=== PATIENT | male | born 1955 | race Caucasian/White ===

== ENCOUNTER 2018-11-26 13:12 | Observation (INO) | payer BC, MEDICARE ==
--- NOTE | 2018-11-26 14:01 | ED ---
HPI Cardiac - HPI Summary HPI Summary: This pt is a 62 y/o male presenting to [facility] referred by PCP for abnormal EKG. Pt reports he had a regular check up today for the first time after not seeing a PCP for 5 years. Former PCP was Dr. Gonzalez, current PCP is Dr. Fulton. Pt had an EKG done and was told it was abnormal with borderline ND. He states he has never had an EKG in the past. He was also told he had elevated blood pressure today. Denies chest pain, SOB, abd pain, nausea, dizziness. Pt was referred to the ED for further evaluation. PMHx: HTN. Pt is a current every day smoker. He has never had a stress test. FHx: mother with HTN. - History of Current Complaint Chief Complaint: EDGeneral Stated Complaint: LABS/DOCTOR SENT FOR EKG Time Seen by Provider: 11/26/18 13:50 Hx Obtained From: Patient Onset/Duration: Started Hours Ago Timing: Lasting Hours Current Severity: None Pain Intensity: 0 Pain Scale Used: 0-10 Numeric Aggravating Factor(s): Nothing Alleviating Factor(s): Nothing Associated Signs and Symptoms: Negative: Chest Pain, Dizziness, Shortness of Breath, Fever, Chills, Nausea, Abdominal Pain - Allergy/Home Medications Allergies/Adverse Reactions: Allergies Allergy/AdvReac Type Severity Reaction Status Date / Time No Known Allergies Allergy Verified 04/13/14 13:53 PMH/Surg Hx/FS Hx/Imm Hx Endocrine/Hematology History: Denies: Hx Anticoagulant Therapy, Hx Diabetes, Hx Thyroid Disease Cardiovascular History: Reports: Hx Hypertension Denies: Hx Pacemaker/ICD Respiratory History: Reports: Hx Chronic Obstructive Pulmonary Disease (COPD) Denies: Hx Asthma GI History: Reports: Hx Gastroesophageal Reflux Disease History: Denies: Hx Renal Disease Sensory History: Denies: Hx Hearing Aid Neurological History: Denies: Hx Dementia, Hx Seizures Psychiatric History: Denies: Hx Panic Disorder, Hx Substance Abuse - Surgical History Surgery Procedure, Year, and Place: Left pneumothorax, . L inguinal hernia repair,1966. R eye injury and surgery at 20mos of age Hx Anesthesia Reactions: No Infectious Disease History: No Infectious Disease History: Denies: Hx Hepatitis, Hx Human Immunodeficiency Virus (HIV), Traveled Outside the [place] in Last 30 Days - Family History Known Family History: Positive: Hypertension - mother - Social History Alcohol Use: Weekly Substance Use Type: Reports: None Smoking Status (MU): Heavy Every Day Tobacco Smoker Review of Systems Negative: Fever, Chills Negative: Chest Pain Negative: Shortness Of Breath Negative: Abdominal Pain, Nausea Neurological: Other - NEG: dizziness All Other Systems Reviewed And Are Negative: Yes Physical Exam - Summary Physical Exam Summary: Appearance: Well appearing, no pain distress Skin: warm, dry, reflects adequate perfusion Head/face: normal Eyes: EOMI, DEON ENT: normal Neck: supple, nontender Respiratory: CTA, breath sounds present Cardiovascular: RRR, pulses symmetrical Abdomen: nontender, soft Musculoskeletal: normal, strength/ROM intact Neuro: normal, sensory motor intact, A&Ox3 Triage Information Reviewed: Yes Vital Signs On Initial Exam: Initial Vitals Temp Pulse Resp BP Pulse Ox 98.3 F 97 22 192/118 95 11/26/18 13:16 11/26/18 13:16 11/26/18 13:16 11/26/18 13:16 11/26/18 13:16 Vital Signs Reviewed: Yes Diagnostics - Vital Signs Vital Signs Temp Pulse Resp BP Pulse Ox 11/26/18 13:16 98.3 F 97 22 192/118 95 - Laboratory Result Diagrams: 11/26/18 14:21 11/26/18 14:21 Lab Statement: Any lab studies that have been ordered have been reviewed, and results considered in the medical decision making process. - Radiology Chest XR Radiology Interpretation Completed By: Radiologist Summary of Radiographic Findings: IMPRESSION: No evidence for acute finding. Dr. Burden has reviewed this report. - EKG 13:31 Cardiac Rate: NL - at 86 bpm EKG Rhythm: Sinus Rhythm Summary of EKG Findings: RBBB. Disposition - Course Assessment/Plan: Pt is a 62 y/o male, with hx of HTN, who presents to the ED for abnormal EKG. Pt was told EKG was abnormal with borderline ND and that he had elevated blood pressure by his PCP. Denies any complaints. Blood work, CXR , EKG obtained. First troponin is 0.04. Chest XR shows no evidence for acute finding. In the ED course the pt was given aspirin 324 mg, clonidine. I discussed with Dr. Grady, ground products director, who recommends a second troponin and if negative pt can be discharged home with antihypertensive medications. Second troponin is 0.05. Discussed pt care with Dr. Hu, hospitalist, who accepted the pt for admission. - Differential Dx - Cardiopulmonary Differential Diagnoses - Cardiopulmonary: Other - acs/htn - Diagnoses Provider Diagnoses: ACS (acute coronary syndrome), Uncontrolled hypertension - Physician Notifications Discussed Care Of Patient With: Paco Grady Time Discussed With Above Provider: 15:46 Instructed by Provider To: Other - I discussed with Dr. Grady, ground products director, who recommends a second troponin and if negative pt can be discharged home with antihypertensive medications. [17:29] Discussed pt care with Dr. Hu, hospitalist, who accepted the pt for admission. Discharge - Sign-Out/Discharge Documenting (check all that apply): Patient Departure - Admit to [facility] - Discharge Plan Condition: Stable Disposition: ADMITTED TO [facility] Referrals: Harika Fulton MD [Primary Care Provider] - - Billing Disposition and Condition Condition: STABLE Disposition: Admitted to [facility] - Attestation Statements Document Initiated by Scribe: Yes Documenting Scribe: April Stover Provider For Whom Scribe is Documenting (Include Credential): Kiran Burden MD Scribe Attestation: April Joseph, scribed for Kiran Burden MD on 11/26/18 at 1751. Scribe Documentation Reviewed: Yes Provider Attestation: The documentation as recorded by the April woods accurately reflects the service I personally performed and the decisions made by , Kiran Burden MD Status of Scribe Document: Viewed
[2018-11-26 14:36] LABS: ABS Basophils 0.1 10^3/ul (0-0.2); ABS Eosinophils 0.1 10^3/ul (0-0.6); ABS Lymphocytes 1.6 10^3/ul (1.0-4.8); ABS Monocytes 0.9 10^3/ul (0-0.8); ABS Neutrophils 7.3 10^3/ul (1.5-7.7); ABS Nucleated RBC 0 10^3/ul; Eosinophil % 1.1 %; Hematocrit 48 % (42-52); Hemoglobin 16.6 g/dl (14.0-18.0); Lymphocyte % 16.3 %; Mean Corpuscular HGB Conc 35 g/dl (31-36); Mean Corpuscular Hemoglobin 29 pg (27-31); Mean Corpuscular Volume 85 fL (80-94); Mean Platelet Volume 7.9 fL (7.4-10.4); Nucleated Red Blood Cells % 0; Platelet Count 286 10^3/ul (150-450); Red Blood Count 5.66 10^6/ul (4.00-5.40); Red Cell Distribution Width 15 % (10.5-15)
[2018-11-26 14:52] LABS: Albumin/Globulin Ratio 1.3 (1-3); BUN/Creatinine Ratio 15.7 (8-20); EGFR African American 84.4 (>60); EGFR Non-African American 69.7 (>60); Potassium 3.8 mmol/L (3.5-5.0); Total Bilirubin 0.6 mg/dL (0.2-1.0)
[2018-11-26 15:04] LABS: Troponin I 0.04 ng/mL (<0.04)
[2018-11-26] MEDS ORDERED: Aspirin 81 mg CHEW TAB* 81 MG TAB.CHEW PO ONE (15:32)
[2018-11-26] MEDS ORDERED: cloNIDine TAB* 0.1 MG PO ONE (15:45)
[2018-11-26] MEDS ORDERED: Labetalol IV* 5 MG/ML 20 ML VIAL IV PUSH ONE (17:34)
[2018-11-26] MEDS ORDERED: Lisinopril TAB* 5 MG PO ONE (17:35)
[2018-11-26] MEDS ORDERED: Acetaminophen TAB* 325 MG PO PRN (17:39)
[2018-11-26] MEDS ORDERED: Al Hydrox/Mg Hydrox/Simet LIQ* 30 ML UDC PO PRN (17:39)
[2018-11-26] MEDS ORDERED: hydrALAZINE IV* 20 MG/ML VIAL IV SLOW PU PRN (18:19)
[2018-11-26] MEDS ORDERED: hydrALAZINE IV* 20 MG/ML VIAL IV SLOW PU ONE (18:20)
[2018-11-26] MEDS: Metoprolol Tartrate TAB* 25 MG PO SCH (18:34)
[2018-11-26] MEDS: Aspirin EC TAB* 81 MG TAB.EC PO SCH (18:35)
[2018-11-26 18:49] LABS: TSH (Thyroid Stimulating Horm) 2.41 mcIU/mL (0.34-5.60)
--- NOTE | 2018-11-26 20:05 | HP ---
CC: Dr. Fulton * HISTORY AND PHYSICAL: DATE OF ADMISSION: 11/26/18 PRIMARY CARE PROVIDER: Dr. Fulton from [facility]. CHIEF COMPLAINT: "My doctor sent me to the emergency department because I had abnormal EKG." HISTORY OF PRESENT ILLNESS: Virgilio Carrizales is a 62-year-old male who stated that he has had problems with vision ever since June 2018. He had prescriptions for his glasses changed, but nevertheless, his vision was occasionally so blurry and his doctor noted that the patient had cataracts and he may need "laser surgery." For the surgical clearance, the patient was sent to the primary care provider for evaluation. Since the patient had not seen a doctor for 5 years, it took a while for the patient to be able to be seen with a new primary care provider. The patient came in to see Dr. Fulton today and was noted to have hypertension. His EKG was obtained, which also was noted to be abnormal. With the abnormal EKG, the patient was sent to the ED for evaluation. The patient denies any shortness of breath or chest pain. His vision changes had been going on for the past several months. He denies any exercise intolerance. He has history of hypertension and he stopped taking his medications 5 years ago. His systolic pressures were in the 200s in the emergency department. He is going to be placed on overnight observation with a diagnosis of uncontrolled hypertension. PAST MEDICAL HISTORY: 1. Hypertension. 2. History of right rotator cuff surgery. 3. History of right eye surgery for trauma as a child. MEDICATIONS: The patient was prescribed medications just today and those included: 1. Amlodipine 10 mg daily. 2. He also takes [id number] Prilosec 20 mg daily. 3. Ibuprofen on a p.r.n. basis. ALLERGIES: No known drug allergies. FAMILY HISTORY: Positive for father who of colon cancer at the age of 56. Mother of [place] at the age of 72. His brother from alcoholism. 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 He smokes 1 pack per day and he has been doing so ever since he turned 17. He denies any drug use. He drinks alcohol rarely. He is and lives alone. For his surrogate, he names his daughter, Lexi Carrizales. REVIEW OF SYSTEMS: Please see history of present illness. All the remaining 12 systems were reviewed with the patient and were otherwise negative. PHYSICAL EXAMINATION GENERAL: The patient is a pleasant 62-year-old male, who is in no acute distress. Alert, awake, and oriented x3. VITAL SIGNS: Blood pressure of 202/126, respiratory rate 20, oxygen saturation 95% on room air, heart rate of 84, temperature of 98.3. HEENT: Head: Atraumatic, normocephalic. Eyes: Pupils are rather pinpoint, but reactive to light bilaterally. Oropharynx clear. Mucosa moist. NECK: Supple. No JVD. No bruits bilaterally. RESPIRATORY: Scant wheezes in bilateral mid lungs. CARDIOVASCULAR: Regular rate and rhythm. No murmurs. ABDOMEN: Protuberant, tympanic to percussion. Soft, nontender. Bowel sounds are present in all 4 quadrants. Small umbilical hernia present, reducible. EXTREMITIES: There is no edema. Pulses are +2 bilaterally. No clubbing, cyanosis. NEUROLOGIC: On neuro evaluation, speech clear. Cranial nerves II through XII are grossly intact. Motor strength is 5/5 bilaterally. SKIN: On evaluation of the skin, the patient has a small lipoma-like lesion noted on the upper eyelid on the left side, approximately 0.5 cm in diameter. The patient also has seborrheic keratotic lesion in the right scapular region of approximately 2 cm. PSYCHIATRIC: On psychiatric evaluation, the patient is oriented x3 with no evidence of anxiety or depression. LABORATORY DATA/DIAGNOSTIC STUDIES: White blood cell count of 10.3, hemoglobin 16.6, hematocrit of 48, and platelets of 186,000. Sodium was 136, potassium 3.8, chloride 104, carbon dioxide 25, BUN 17, creatinine 1.08. Liver function tests were unremarkable. Troponin of 0.04, repeat troponin is 0.05. Brain natriuretic peptide was 180. TSH is pending at the time of dictation. Portable chest x-ray, impression: "No evidence of acute finding." The patient's EKG showed ST depressions in leads 2, 3, and aVF and negative T waves in V5 and V6. There are no EKGs available for comparison. ASSESSMENT AND PLAN: 1. The patient has hypertension that is uncontrolled. He received clonidine tablet 0.2 mg in the ED and it did not control his systolic pressures with which he arrived, which were in 200s. At this point, the patient is going to be placed on telemetry monitored bed on overnight observation. He is going to be treated with lisinopril and metoprolol. We are going to restart his amlodipine in the morning. He is going to be given hydralazine on as needed basis. The patient has a history of hypertension, but has not taken his medications over the past 5 years. So far, he has not had any symptoms of chest pain or shortness of breath. 2. Abnormal EKG. Apparently as per the ED physician's report, there had been an EKG some place in the system that unfortunately I cannot find that shows that the patient's EKG changes are at his baseline. Nevertheless, the patient is asymptomatic from cardiac standpoint and at this point, due to his abnormal and uncontrolled blood pressure, a stress test is not going to be performed. It would be beneficial for the patient to have further cardiac evaluation with a stress test as outpatient. For the time being, the patient is going to be evaluated with transthoracic echocardiogram. 3. The patient has mildly elevated troponins, likely due to uncontrolled hypertension and demand ischemia. Nevertheless, we will follow up with troponins throughout his hospital stay. 4. DVT prophylaxis. The patient is going to be placed on heparin subcutaneously. 5. The patient's code status is full and his surrogate is his daughter. TIME SPENT: Approximately 65 minutes were spent on the admission of this patient, more than half of that time was spent [id number] with the patient during the interview and physical exam. [id number]/CPS #: [id number] MTDD
[2018-11-26] MEDS: Heparin VIAL(*) 5000 UNITS/ML VIAL (FIVE THOUSAND) SUBCUT SCH (21:04)
[2018-11-27] MEDS: Metoprolol Tartrate TAB* 25 MG PO SCH ×2 (02:45→10:22)
[2018-11-27] MEDS: Heparin VIAL(*) 5000 UNITS/ML VIAL (FIVE THOUSAND) SUBCUT SCH ×2 (05:49→12:48)
[2018-11-27 06:29] LABS: ABS Basophils 0.1 10^3/ul (0-0.2); ABS Eosinophils 0.3 10^3/ul (0-0.6); ABS Lymphocytes 1.8 10^3/ul (1.0-4.8); ABS Monocytes 0.9 10^3/ul (0-0.8); ABS Nucleated RBC 0 10^3/ul; Eosinophil % 2.6 %; Hematocrit 49 % (42-52); Hemoglobin 16.5 g/dl (14.0-18.0); Lymphocyte % 17.4 %; Mean Corpuscular HGB Conc 34 g/dl (31-36); Mean Corpuscular Hemoglobin 29 pg (27-31); Mean Corpuscular Volume 87 fL (80-94); Mean Platelet Volume 7.9 fL (7.4-10.4); Nucleated Red Blood Cells % 0.1; Platelet Count 290 10^3/ul (150-450); Red Blood Count 5.67 10^6/ul (4.00-5.40); Red Cell Distribution Width 15 % (10.5-15); White Blood Count 10.1 10^3/ul (3.5-10.8)
[2018-11-27 06:48] LABS: BUN/Creatinine Ratio 17.7 (8-20); Calcium 9.2 mg/dL (8.6-10.3); EGFR African American 79.8 (>60); Potassium 4.4 mmol/L (3.5-5.0)
[2018-11-27] MEDS: Aspirin EC TAB* 81 MG TAB.EC PO SCH (08:09)
[2018-11-27] MEDS ORDERED: amLODIPine TAB* 5 MG PO SCH (09:00)
[2018-11-27] MEDS ORDERED: Pantoprazole TAB * 40 MG TAB PO SCH (09:00)
[2018-11-27] MEDS ORDERED: Lisinopril TAB* 5 MG PO SCH (09:00)
--- NOTE | 2018-11-27 10:40 | ECHO ---
Patient: MANDA HAYNES [facility] Rec#: [id number] : 1955 Date: 11/27/2018 Age: 63y Height: 175 cm / 68.9 in Weight: 91 kg / 200.6 lbs Sex: M BSA: 2.07 Room#: [facility] Admit Date#: 11/26/2018 Type: Inpatient Referring: Nadeen Hu MD Reading: Barbara Correa MD Process Improvement Consultant: Tila Huff RDCS CC: Harika Fulton MD Transthoracic Echocardiogram Indication: Abnormal EKG BP: 140/89 HR: 72 Rhythm: NSR with PVCs Findings History: HTN, smoker. Technical Comments: The study quality is fair. Completed at 1000. Left Ventricle: The left ventricular chamber size is normal. Mild concentric left ventricular hypertrophy is observed. Global left ventricular wall motion and contractility are within normal limits. There is normal left ventricular systolic function. The estimated ejection fraction is 55-60%. Abnormal left ventricular diastolic function is observed. The left ventricular diastolic filling pattern is consistent with pseudonormalization. The left ventricular diastolic filling pattern is consistent with elevated left ventricular end-diastolic pressure. Left Atrium: The left atrium is mildly dilated. Right Ventricle: Moderator Band present. The right ventricle is mildly dilated. The right ventricle wall thickness is moderately increased. The right ventricular global systolic function is normal. Right Atrium: The right atrium is mildly dilated. Aortic Valve: The aortic valve is trileaflet. The aortic valve leaflets are mildly thickened. There is no evidence of aortic regurgitation. There is no evidence of aortic stenosis. Mitral Valve: The mitral valve leaflets are mildly thickened. There is trace to mild mitral regurgitation. There is no evidence of mitral stenosis. Tricuspid Valve: The tricuspid valve leaflets are not thickened. There is trace tricuspid regurgitation. Unable to estimate the right ventricular systolic pressure. There is no tricuspid stenosis. Pulmonic Valve: The pulmonic valve appears normal. There is a trace pulmonic regurgitation. There is no pulmonic stenosis. Pericardium: There is no significant pericardial effusion. A pericardial fat pad is visualized. Aorta: There is mild dilatation of the ascending aorta. The aortic arch is not well visualized. The aortic root is normal in size. Pulmonary Artery: The main pulmonary artery is not well visualized. Venous: The inferior vena cava appears normal in size. There is a greater than 50% respiratory change in the inferior vena cava dimension. Conclusions Mild concentric left ventricular hypertrophy is observed. Global left ventricular wall motion and contractility are within normal limits. There is normal left ventricular systolic function. The estimated ejection fraction is 55-60%. The left ventricular diastolic filling pattern is consistent with pseudonormalization. The right ventricle wall thickness is moderately increased and is mildly dilated. The right ventricular global systolic function is normal. There is trace to mild mitral regurgitation. There is trace tricuspid regurgitation. There is mild dilatation of the ascending aorta: 3.7 cm. No prior echo available to compare. Measurements Name Value Normal Range RVIDd (AP) 2D 2.9 cm (0.9 - 2.6) RVDdMajor (2D) 4.8 cm (2.2 - 4.4) RVAW (2D) 1 cm (0.2 - 0.5) RAd ISD 4CH 5.2 cm (3.4 - 4.9) RA (A4C)W 5.2 cm (2.9 - 4.6) IVSd (2D) 1.1 cm (0.6 - 1) LVPWd (2D) 1.2 cm (0.6 - 1) LVIDd (2D) 4.6 cm (3.6 - 5.4) LVIDs (2D) 3.3 cm - LV FS (2D) 28 % (25 - 45) Aortic Annulus 1.8 cm (1.4 - 2.6) Ao root diameter (2D) 3 cm (2.1 - 3.5) Ascending Ao 3.7 cm (2.1 - 3.4) LA dimension (AP) 2D 3.9 cm (2.3 - 3.8) LAd ISD 4CH 5.8 cm (2.9 - 5.3) LA ISD 4CH W 4.5 cm (2.5 - 4.5) Name Value Normal Range LA ESV BP (A/L) index 38 ml/m2 - Name Value Normal Range MV E-wave Vmax 0.7 m/sec - MV deceleration time 187 msec - MV A-wave Vmax 0.5 m/sec - MV E:A ratio 1.3 ratio - LV septal e' Vmax 0.06 m/sec - LV lateral e' Vmax 0.04 m/sec - LV E:e' septal ratio 11.7 ratio - LV E:e' lateral ratio 17.5 ratio - Name Value Normal Range AV Vmax 1.4 m/sec - AV VTI 27 cm - AV peak gradient 8 mmHg - AV mean gradient 4 mmHg - LVOT Vmax 1.1 m/sec - LVOT VTI 20 cm - LVOT peak gradient 5 mmHg - LVOT mean gradient 2 mmHg - ELISEO Vmax 0.6 m/sec - Name Value Normal Range IVC diameter 1.7 cm - Name Value Normal Range PV Vmax 1.2 m/sec - PV peak gradient 6 mmHg -
[2018-11-27 11:34] VITALS: BP 153/84
--- NOTE | 2018-11-27 15:31 | DS ---
CC: Dr. Fulton * DISCHARGE SUMMARY: DATE OF ADMISSION: 11/26/18 DATE OF DISCHARGE: 11/27/18 PRIMARY CARE PROVIDER: Dr. Fulton from [facility]. DISCHARGE DIAGNOSES: 1. Uncontrolled hypertension. 2. Abnormal EKG. 3. Elevated troponin. MEDICATIONS ON DISCHARGE: Include: 1. Amlodipine 10 mg daily. 2. Aspirin 325 mg daily. 3. Ibuprofen 300 mg on a p.r.n. basis. 4. Prilosec 20 mg daily. 5. Metoprolol tartrate 25 mg b.i.d. LABORATORY DATA AND STUDIES PERFORMED DURING HOSPITAL STAY: Included: On 11/27, white blood cell count of 10.1, hemoglobin of 16.5, hematocrit of 49, and platelets of 290. Sodium 137, potassium 4.4, chloride 103, carbon dioxide 29, BUN 20, creatinine 1.13. The patient's troponins ranged from 0.04 to 0.05. Portable chest x-ray obtained on admission, impression: "No evidence of acute findings." The patient's transthoracic echocardiogram obtained on 11/27/18 showed mild concentric LVH with EF of 55% to 60% with normal left ventricular systolic function with left ventricular diastolic filling pattern consistent with pseudo- normalization. The right ventricle wall thickness was moderately increased and mildly dilated. There was trace to mild mitral regurgitation, trace tricuspid regurgitation, and mild dilatation of the ascending aorta at 3.7 cm. HOSPITALIZATION COURSE: Virgilio Carrizales is a 63-year-old male who went into first primary care appointment and preop clearance for possibility of eye surgery. He had history of hypertension several years ago, but he has not seen a doctor or taken his medications for the past at least 5 years. He went to see his primary care provider and his systolic pressures were in the 200s. In addition to that, his EKG showed inferior wall ST depressions. Due to that, his primary care provider directed the patient to the emergency department for evaluation. In the emergency department, his systolic pressures were still in the 200s and medicine service was asked to evaluate the patient. The patient complained of no chest pain or shortness of breath. The patient's initial troponin was 0.04. The patient was observed on telemetry monitored bed. He had no arrhythmias noted. His troponins continued to be ranging from 0.04 to 0.05, but the patient was once again entirely asymptomatic. His transthoracic echocardiogram showed no wall motion abnormality and good EF and no major valvular abnormalities. At this point, due to the patient's uncontrolled hypertension and due to that the patient was asymptomatic from a cardiac standpoint, a stress test was not indicated. It was recommended for the patient to follow with his primary care provider with an outpatient schedule for a stress rest. In regards to the patient's blood pressure control, in addition to the patient' s Norvasc that his primary care provider prescribed on 08/26/19, the patient was also placed on metoprolol 25 mg twice a day with his pressures normalizing in the 140s and 150s by the time discharge and his blood pressure on the day of discharge was 153/84 with a heart rate of 74. Remaining physical evaluation at discharge was unchanged from admission. The patient is recommended to be discharged home and recommendation to follow up with his primary care provider in approximately a week. Please note that this is a short summary of the patient's hospitalization. Please refer to further medical records for details. [id number] #: [id number] MTDD
== END 2018-11-27 14:00 | disposition home or self-care (01) ==
LOC: ED 13:12 → MEDTELE 17:39
PROVIDERS: ADMIT Internal Medicine; ATTEND Internal Medicine
DX: I10 Essential (primary) hypertension (principal); R94.31 Abnormal electrocardiogram [ECG] [EKG]; R79.89 Other specified abnormal findings of blood chemistry; Z79.82 Long term (current) use of aspirin; F17.210 Nicotine dependence, cigarettes, uncomplicated
CPT/HCPCS: 36415; 71045; 80048; 80053; 83605; 83880; 84443; 84484; 85025; 93005; 93306; 96372; 96374; 96375; 99284; A9270-GY; G0378; J1644

== ENCOUNTER 2020-11-12 11:56 | Inpatient (IN) ==
[2020-11-12] MEDS ORDERED: NS 0.9% 1000 ml BAG 1,000 ML IV ONE ×2 (12:10→12:56)
[2020-11-12] MEDS ORDERED: Piperacillin/Tazobac ADVAN 3.375 GM in NS 0.9% 100 ml BAG 100 ML IVPB ONE (12:39)
[2020-11-12 12:49] LABS: ABS Lymphocytes 0.5 10^3/ul (1.0-4.8); ABS Monocytes 0.7 10^3/ul (0-0.8); ABS Neutrophils 14.1 10^3/ul (1.5-7.7); Eosinophil % 0.1 %; Hematocrit 42 % (42-52); Hemoglobin 13.8 g/dL (14.0-18.0); Lymphocyte % 3.1 %; Mean Corpuscular HGB Conc 33 g/dL (31-36); Mean Corpuscular Hemoglobin 26 pg (27-31); Mean Corpuscular Volume 79 fL (80-94); Mean Platelet Volume 7.2 fL (7.4-10.4); Platelet Count 349 10^3/uL (150-450); Red Blood Count 5.28 10^6 /uL (4.18-5.48); Red Cell Distribution Width 17 % (10-15); White Blood Count 15.2 10^3/uL (3.5-10.8)
[2020-11-12 13:08] LABS: Urine Appearance Cloudy; Urine Bilirubin Negative (Negative); Urine Blood Negative (Negative); Urine Color Yellow; Urine Glucose Negative (Negative); Urine Ketones Trace (Negative); Urine Nitrite Negative (Negative); Urine Protein 1+(30 mg/dL) (Negative); Urine Specific Gravity 1.021 (1.010-1.030); Urine Urobilinogen Negative (Negative)
[2020-11-12 13:15] LABS: Troponin I 0.14 ng/mL (<0.03)
[2020-11-12 13:22] LABS: Urine Bacteria Absent (Absent); Urine Granular Casts Present (Absent); Urine Red Blood Cell 3+(>10/hpf) (Absent); Urine White Blood Cell 1+(6-10/hpf) (Absent)
[2020-11-12 13:23] LABS: ALT 6 U/L (7-52); AST 10 U/L (13-39); Albumin/Globulin Ratio 0.8 (1-3); Alkaline Phosphatase 80 U/L (34-104); Anion Gap 11 mmol/L (2-11); BUN/Creatinine Ratio 28.9 (8-20); Blood Urea Nitrogen 37 mg/dL (6-24); CO2 Carbon Dioxide 19 mmol/L (22-32); Calcium 8.5 mg/dL (8.6-10.3); Chloride 111 mmol/L (101-111); EGFR African American 68.9 (>60); EGFR Non-African American 56.9 (>60); Globulin 3.6 g/dL (2-4); Glucose 120 mg/dL (70-100); Magnesium 1.9 mg/dL (1.9-2.7); Potassium 4.4 mmol/L (3.5-5.0); Sodium 141 mmol/L (135-145); Total Protein 6.6 g/dL (6.4-8.9)
[2020-11-12 13:37] LABS: LDH 187 U/L (140-271)
[2020-11-12 13:38] LABS: C Reactive Protein 227.79 mg/L (<8.01)
[2020-11-12 13:43] LABS: TSH Ultra Thyroid Stim Horm 1.73 mcIU/mL (0.34-5.60)
[2020-11-12] MEDS ORDERED: levETIRAcetam 1000MG IVPREMIX 1,000 MG/100 ML BAG IVPB ONE (14:27)
[2020-11-12] MEDS ORDERED: Dexamethasone IV 4 MG/ML 5 ML VIAL (20 MG) IVPB ONE (14:28)
[2020-11-12] MEDS ORDERED: Etomidate 20 mg/10 ml 2 MG/ML 10 ml VIAL ONE (14:39)
[2020-11-12] MEDS ORDERED: Succinylcholine 200 mg VIAL 20 mg/ml 10 ml VIAL (200 mg) ONE (14:40)
[2020-11-12] MEDS ORDERED: Propofol 10 mg/ml 100 ML BTL 100 ML ONE (14:40)
[2020-11-12 14:51] LABS: Activated Partial Thrombo Time 25.4 seconds (26.0-38.0); INR 1.28 (0.82-1.09)
[2020-11-12] MEDS ORDERED: Propofol 10 mg/ml 100 ML BTL 100 ML IV ONE (15:03)
[2020-11-12] MEDS ORDERED: Succinylcholine 200 mg VIAL 20 mg/ml 10 ml VIAL (200 mg) IV ONE (15:20)
[2020-11-12] MEDS ORDERED: Etomidate 20 mg/10 ml 2 MG/ML 10 ml VIAL IV ONE (15:20)
[2020-11-12] MEDS ORDERED: Vancomycin 1,000 MG in NS 0.9% 250 ml 250 ML IVPB ONE (15:51)
[2020-11-12] MEDS ORDERED: Vancomycin per Pharmacy 1 EA NOTE FOLLOW UP SCH (16:00)
[2020-11-12] MEDS: Cefepime 2 GM in Dextrose 2 GM/50 ML BAG IV SCH (16:21)
[2020-11-12] MEDS: Dexamethasone IV 4 MG/ML VIAL 1 ml VIAL IV SLOW PU SCH (17:11)
[2020-11-12] MEDS: Propofol 10 mg/ml 100 ML BTL 100 ML IV SCH (17:29)
[2020-11-12 17:57] LABS: Troponin I 0.05 ng/mL (<0.03)
[2020-11-12] MEDS: Lactated Ringers 1000 ml BAG 1,000 ML IV SCH (18:10)
[2020-11-12] MEDS ORDERED: Iodixanol (CONTRAST) 320 MG/ML 100 ML SDV IV ONE (22:29)
[2020-11-13] MEDS: Dexamethasone IV 4 MG/ML VIAL 1 ml VIAL IV SLOW PU SCH ×4 (00:15→17:40)
[2020-11-13] MEDS: Propofol 10 mg/ml 100 ML BTL 100 ML IV SCH ×3 (00:40→20:13)
[2020-11-13] MEDS: Lactated Ringers 1000 ml BAG 1,000 ML IV SCH ×3 (02:02→15:15)
[2020-11-13] MEDS: Vancomycin 1000 MG in NS 0.9% 250 ML IVPB SCH ×3 (02:04→18:19)
[2020-11-13 02:06] LABS: Troponin I 0.04 ng/mL (<0.03)
[2020-11-13 04:37] LABS: Hematocrit 35 % (42-52); Hemoglobin 11.2 g/dL (14.0-18.0); Mean Corpuscular HGB Conc 32 g/dL (31-36); Mean Corpuscular Hemoglobin 26 pg (27-31); Mean Corpuscular Volume 80 fL (80-94); Mean Platelet Volume 7.5 fL (7.4-10.4); Platelet Count 300 10^3/uL (150-450); Red Blood Count 4.36 10^6 /uL (4.18-5.48); Red Cell Distribution Width 17 % (10-15); White Blood Count 13.9 10^3/uL (3.5-10.8)
[2020-11-13 04:54] LABS: BUN/Creatinine Ratio 32.4 (8-20); Calcium 8.2 mg/dL (8.6-10.3); EGFR African American 81.2 (>60); EGFR Non-African American 67.1 (>60); Magnesium 1.8 mg/dL (1.9-2.7); Phosphorus 3.4 mg/dL (2.5-5.0); Potassium 4.4 mmol/L (3.5-5.0)
[2020-11-13] MEDS ORDERED: Chlorhexidine MOUTHWASH 0.12% 15 ML UDC TOPICAL SCH (05:30)
[2020-11-13] MEDS: Enoxaparin 40 MG/0.4 ML SYR SUBCUT SCH (05:58)
[2020-11-13] MEDS ORDERED: Pantoprazole VIAL 40 MG VIAL IV SCH (06:00)
[2020-11-13] MEDS ORDERED: LORazepam 2 mg VIAL 1 ml ONE (06:56)
[2020-11-13] MEDS ORDERED: Lorazepam PYXIS KEY ONE (06:56)
[2020-11-13] MEDS ORDERED: LaCOSAMide VIAL 200 MG in NS 0.9% 50 ML 50 ML IV ONE (08:00)
[2020-11-13] MEDS ORDERED: levETIRAcetam 500 MG IVPREMIX 500 MG/100 ML BAG IV SCH (09:00)
[2020-11-13] MEDS: Pantoprazole VIAL 40 MG VIAL IV SCH (09:40)
[2020-11-13] MEDS: Chlorhexidine MOUTHWASH 0.12% 15 ML UDC TOPICAL SCH ×4 (09:40→20:14)
[2020-11-13] MEDS: Cefepime 2 GM in Dextrose 2 GM/50 ML BAG IV SCH ×2 (09:40→22:01)
[2020-11-13] MEDS: levETIRAcetam 500 MG IVPREMIX 500 MG/100 ML BAG IV SCH (16:21)
[2020-11-13] MEDS ORDERED: Vancomycin Trough Check NOTE FOLLOW UP ONE (17:30)
[2020-11-13 17:48] LABS: Vancomycin Trough 19.2 mcg/mL
[2020-11-13 18:11] LABS: EGFR African American 97.2 (>60); EGFR Non-African American 80.3 (>60)
[2020-11-13] MEDS: LaCOSAMide VIAL 100 MG in NS 0.9% 50 ML 50 ML IV SCH (20:20)
[2020-11-14] MEDS: Chlorhexidine MOUTHWASH 0.12% 15 ML UDC TOPICAL SCH ×6 (00:40→21:07)
[2020-11-14] MEDS: Dexamethasone IV 4 MG/ML VIAL 1 ml VIAL IV SLOW PU SCH ×4 (00:40→17:01)
[2020-11-14] MEDS: levETIRAcetam 500 MG IVPREMIX 500 MG/100 ML BAG IV SCH ×3 (00:40→16:16)
[2020-11-14] MEDS: Vancomycin 1000 MG in NS 0.9% 250 ML IVPB SCH ×2 (02:16→11:21)
[2020-11-14 05:31] LABS: Hematocrit 35 % (42-52); Hemoglobin 11.2 g/dL (14.0-18.0); Mean Corpuscular HGB Conc 32 g/dL (31-36); Mean Corpuscular Hemoglobin 26 pg (27-31); Mean Corpuscular Volume 80 fL (80-94); Mean Platelet Volume 8.1 fL (7.4-10.4); Platelet Count 322 10^3/uL (150-450); Red Blood Count 4.39 10^6 /uL (4.18-5.48); Red Cell Distribution Width 18 % (10-15); White Blood Count 19.2 10^3/uL (3.5-10.8)
[2020-11-14] MEDS: Enoxaparin 40 MG/0.4 ML SYR SUBCUT SCH (06:09)
[2020-11-14 06:11] LABS: Calcium 8.4 mg/dL (8.6-10.3); EGFR African American 91.6 (>60); EGFR Non-African American 75.7 (>60); Magnesium 1.9 mg/dL (1.9-2.7); Phosphorus 3.4 mg/dL (2.5-5.0); Potassium 4.7 mmol/L (3.5-5.0)
[2020-11-14] MEDS: Lactated Ringers 1000 ml BAG 1,000 ML IV SCH (07:58)
[2020-11-14] MEDS: Cefepime 2 GM in Dextrose 2 GM/50 ML BAG IV SCH ×2 (08:01→21:15)
[2020-11-14] MEDS: Pantoprazole VIAL 40 MG VIAL IV SCH (08:08)
[2020-11-14] MEDS: LaCOSAMide VIAL 100 MG in NS 0.9% 50 ML 50 ML IV SCH ×2 (08:28→21:07)
[2020-11-14] MEDS: Propofol 10 mg/ml 100 ML BTL 100 ML IV SCH ×2 (08:45→22:58)
[2020-11-14] MEDS ORDERED: Vancomycin Trough Check NOTE FOLLOW UP ONE (17:30)
[2020-11-15] MEDS: levETIRAcetam 500 MG IVPREMIX 500 MG/100 ML BAG IV SCH ×3 (00:24→17:11)
[2020-11-15] MEDS: Dexamethasone IV 4 MG/ML VIAL 1 ml VIAL IV SLOW PU SCH ×4 (00:24→18:31)
[2020-11-15] MEDS: Chlorhexidine MOUTHWASH 0.12% 15 ML UDC TOPICAL SCH ×6 (00:24→20:18)
[2020-11-15] MEDS ORDERED: Albuterol 2.5mg/3 ml (0.083%) NEB.SOLN INH ONE (02:13)
[2020-11-15 04:47] LABS: Hematocrit 35 % (42-52); Hemoglobin 11.7 g/dL (14.0-18.0); Mean Corpuscular HGB Conc 33 g/dL (31-36); Mean Corpuscular Hemoglobin 26 pg (27-31); Mean Corpuscular Volume 79 fL (80-94); Mean Platelet Volume 8.1 fL (7.4-10.4); Platelet Count 349 10^3/uL (150-450); Red Blood Count 4.47 10^6 /uL (4.18-5.48); Red Cell Distribution Width 17 % (10-15); White Blood Count 19.1 10^3/uL (3.5-10.8)
[2020-11-15] MEDS ORDERED: hydrALAZINE 20 mg/ml 1 ML Vial IV IV SLOW PU PRN ×3 (05:09→16:04)
[2020-11-15 05:15] LABS: BUN/Creatinine Ratio 41.3 (8-20); Calcium 8.1 mg/dL (8.6-10.3); EGFR African American 100.9 (>60); EGFR Non-African American 83.4 (>60); Magnesium 1.8 mg/dL (1.9-2.7); Potassium 4.5 mmol/L (3.5-5.0)
[2020-11-15] MEDS: Enoxaparin 40 MG/0.4 ML SYR SUBCUT SCH (05:51)
[2020-11-15] MEDS: Propofol 10 mg/ml 100 ML BTL 100 ML IV SCH ×2 (05:53→14:50)
[2020-11-15] MEDS ORDERED: Vancomycin Random Level NOTE FOLLOW UP ONE (06:00)
[2020-11-15] MEDS: Pantoprazole VIAL 40 MG VIAL IV SCH (07:59)
[2020-11-15] MEDS ORDERED: Magnesium Sulfate 2 gm BAG 2 GM/50 ML BAG IVPB ONE (08:10)
[2020-11-15] MEDS: LaCOSAMide VIAL 100 MG in NS 0.9% 50 ML 50 ML IV SCH ×2 (08:36→20:18)
[2020-11-15] MEDS: Cefepime 2 GM in Dextrose 2 GM/50 ML BAG IV SCH ×2 (09:07→20:57)
[2020-11-15] MEDS ORDERED: Gadoteridol (CONTRAST) 279.3 MG/ML 10 ML IV ONE (14:42)
[2020-11-15] MEDS: Albuterol 2.5mg/3 ml (0.083%) NEB.SOLN INH PRN ×2 (14:51→18:24)
[2020-11-15] MEDS ORDERED: Vancomycin 750 MG in NS 0.9% 250 ML IVPB ONE (16:00)
[2020-11-15] MEDS ORDERED: Labetalol IV 5 MG/ML 20 ml VIAL ONE (16:05)
[2020-11-15] MEDS: Labetalol IV 5 MG/ML 20 ml VIAL IV PUSH PRN (17:11)
[2020-11-15] MEDS ORDERED: Propofol 10 mg/ml 100 ML BTL 100 ML IV SCH (19:12)
[2020-11-16] MEDS: levETIRAcetam 500 MG IVPREMIX 500 MG/100 ML BAG IV SCH ×4 (00:06→23:56)
[2020-11-16] MEDS: Chlorhexidine MOUTHWASH 0.12% 15 ML UDC TOPICAL SCH ×7 (00:06→23:56)
[2020-11-16] MEDS: Dexamethasone IV 4 MG/ML VIAL 1 ml VIAL IV SLOW PU SCH ×5 (00:06→23:56)
[2020-11-16] MEDS: Propofol* 20 ML VIAL - FOR IV LINE PRIMING ONLY SCH ×3 (00:07→20:21)
[2020-11-16] MEDS: Labetalol IV 5 MG/ML 20 ml VIAL IV PUSH PRN (00:58)
[2020-11-16] MEDS: Vancomycin 750 MG in NS 0.9% 250 ML IVPB SCH ×2 (06:05→17:45)
[2020-11-16] MEDS: Enoxaparin 40 MG/0.4 ML SYR SUBCUT SCH (06:05)
[2020-11-16] MEDS: LaCOSAMide VIAL 100 MG in NS 0.9% 50 ML 50 ML IV SCH ×2 (09:02→20:21)
[2020-11-16] MEDS: Pantoprazole VIAL 40 MG VIAL IV SCH (09:45)
[2020-11-16] MEDS: Cefepime 2 GM in Dextrose 2 GM/50 ML BAG IV SCH ×2 (09:53→20:32)
[2020-11-17] MEDS: Chlorhexidine MOUTHWASH 0.12% 15 ML UDC TOPICAL SCH ×5 (04:03→20:53)
[2020-11-17] MEDS: Enoxaparin 40 MG/0.4 ML SYR SUBCUT SCH (05:27)
[2020-11-17] MEDS: Dexamethasone IV 4 MG/ML VIAL 1 ml VIAL IV SLOW PU SCH ×3 (05:28→18:22)
[2020-11-17] MEDS ORDERED: Vancomycin Trough Check NOTE FOLLOW UP ONE (05:30)
[2020-11-17] MEDS: Vancomycin 750 MG in NS 0.9% 250 ML IVPB SCH (06:28)
[2020-11-17] MEDS: levETIRAcetam 500 MG IVPREMIX 500 MG/100 ML BAG IV SCH ×2 (08:33→16:28)
[2020-11-17] MEDS: LaCOSAMide VIAL 100 MG in NS 0.9% 50 ML 50 ML IV SCH ×2 (08:40→20:53)
[2020-11-17] MEDS: Pantoprazole VIAL 40 MG VIAL IV SCH (08:44)
[2020-11-17] MEDS: Propofol* 20 ML VIAL - FOR IV LINE PRIMING ONLY SCH ×2 (08:45→21:02)
[2020-11-17] MEDS: Cefepime 2 GM in Dextrose 2 GM/50 ML BAG IV SCH (09:31)
[2020-11-17] MEDS: cefTRIAXone 1 gm/50 mL NS BAG 1 GM/50 ML BAG IVPB SCH (12:33)
[2020-11-17] MEDS ORDERED: fentaNYL 100 mcg/2 ml 50 MCG/ML VIAL IV SLOW PU PRN (22:42)
[2020-11-18] MEDS: Chlorhexidine MOUTHWASH 0.12% 15 ML UDC TOPICAL SCH ×4 (00:05→12:20)
[2020-11-18] MEDS: levETIRAcetam 500 MG IVPREMIX 500 MG/100 ML BAG IV SCH ×2 (00:05→08:41)
[2020-11-18] MEDS: Dexamethasone IV 4 MG/ML VIAL 1 ml VIAL IV SLOW PU SCH ×3 (00:05→12:20)
[2020-11-18] MEDS: Enoxaparin 40 MG/0.4 ML SYR SUBCUT SCH (05:35)
[2020-11-18] MEDS: LaCOSAMide VIAL 100 MG in NS 0.9% 50 ML 50 ML IV SCH ×2 (08:25→20:59)
[2020-11-18] MEDS: Pantoprazole VIAL 40 MG VIAL IV SCH (08:26)
[2020-11-18] MEDS: levETIRAcetam IV 500 MG in NS 0.9% 100 ml BAG 100 ML IVPB SCH ×2 (09:56→16:37)
[2020-11-18] MEDS: cefTRIAXone 1 gm/50 mL NS BAG 1 GM/50 ML BAG IVPB SCH (12:19)
[2020-11-18] MEDS ORDERED: Glycopyrrolate IV 0.2 MG/ML 20 ML VIAL IV SLOW PU PRN ×2 (13:46→17:52)
[2020-11-18] MEDS ORDERED: Lorazepam PYXIS KEY PRN ×2 (13:47→16:21)
[2020-11-18] MEDS ORDERED: Glycopyrrolate IV 0.2 MG/ML 20 ML VIAL IV SLOW PU SCH (14:00)
[2020-11-18] MEDS: Morphine 2 MG/ML SYRINGE IV PRN ×2 (14:05→16:04)
[2020-11-18] MEDS: LORazepam 2 mg VIAL 1 ml IV PUSH PRN ×2 (14:05→16:04)
[2020-11-18] MEDS ORDERED: Morphine 10 MG/ML VIAL (1 ml) ONE (16:12)
[2020-11-18] MEDS ORDERED: Morphine 10 MG/ML VIAL (1 ml) IV ONE (16:13)
[2020-11-18] MEDS ORDERED: LORazepam 2 mg VIAL 1 ml IV PUSH PRN (16:21)
[2020-11-19] MEDS: levETIRAcetam IV 500 MG in NS 0.9% 100 ml BAG 100 ML IVPB SCH ×2 (00:02→07:56)
[2020-11-19] MEDS: Morphine 2 MG/ML SYRINGE IV PRN ×2 (00:04→03:24)
[2020-11-19] MEDS ORDERED: Magnesium Sulfate IV 1GM/100ML 1 GM/100 ML BAG IV ONE (06:09)
[2020-11-19] MEDS: LaCOSAMide VIAL 100 MG in NS 0.9% 50 ML 50 ML IV SCH ×2 (08:55→22:33)
[2020-11-19] MEDS ORDERED: LORazepam 2 mg VIAL 1 ml IV PUSH PRN (10:18)
[2020-11-19] MEDS: levETIRAcetam 500 MG/100 ML IV SCH (16:25)
[2020-11-20] MEDS: levETIRAcetam 500 MG/100 ML IV SCH ×3 (00:22→17:38)
[2020-11-20] MEDS ORDERED: Morphine ORAL CONCENTRATE 5 MG/0.25 ML ORAL.SYRIN PO PRN (08:15)
[2020-11-20] MEDS ORDERED: Atropine 1% (ORAL/SL) 15 ML BTL SL PRN (08:56)
[2020-11-20] MEDS ORDERED: NS 0.9% 50 ML 50 ML ONE (09:05)
[2020-11-20] MEDS: LaCOSAMide VIAL 100 MG in NS 0.9% 50 ML 50 ML IV SCH ×2 (09:42→23:16)
[2020-11-21] MEDS: levETIRAcetam 500 MG/100 ML IV SCH ×3 (00:40→16:43)
[2020-11-21] MEDS: LaCOSAMide VIAL 100 MG in NS 0.9% 50 ML 50 ML IV SCH ×2 (09:39→21:19)
[2020-11-22] MEDS: levETIRAcetam 500 MG/100 ML IV SCH ×3 (00:16→16:38)
[2020-11-22] MEDS: LaCOSAMide VIAL 100 MG in NS 0.9% 50 ML 50 ML IV SCH (09:41)
[2020-11-22] MEDS: LaCOSAMide ORALSYR LIQ 10 MG/ML G TUBE SCH (21:24)
[2020-11-22] MEDS: levETIRAcetam LIQ 500 MG/5 ML UDC PEG TUBE SCH (21:26)
[2020-11-23 07:59] VITALS: BP 134/69
[2020-11-23] MEDS: LaCOSAMide ORALSYR LIQ 10 MG/ML G TUBE SCH ×2 (08:18→23:06)
[2020-11-23] MEDS: levETIRAcetam LIQ 500 MG/5 ML UDC PEG TUBE SCH ×2 (08:18→23:05)
[2020-11-24] MEDS: LaCOSAMide ORALSYR LIQ 10 MG/ML G TUBE SCH (08:19)
[2020-11-24] MEDS: levETIRAcetam LIQ 500 MG/5 ML UDC PEG TUBE SCH (08:19)
== END 2020-11-24 08:37 | disposition home or self-care (01) | DRG 720 ==
LOC: ED 11:56 → ICU 14:47 → SSU 11-19 14:26
PROVIDERS: ADMIT Internal Medicine; ATTEND Internal Medicine